=== PATIENT | female | born 1980 | race Caucasian/White ===

== ENCOUNTER 2021-04-23 00:13 | Day surgery (SDC) | payer OTHER, SELFPAY ==
[2021-04-14 15:02] VITALS: BMI 23.7
--- NOTE | 2021-04-22 16:57 | PM.IMHP ---
H&P: HPI History of Present Illness Date/Time: 04/22/21 16:57 Since approx. 2018, patient reports progressively worsening menses. Regular menses, however, reports heavier menses with passage of clots. States that menses last approx. 5-8 days. Reports heavy flow for first half of cycle. Often saturates both ultra tampon and ultra pad back up within one hour. Denies any dysmenorrhea. Patient has a history of BTL and declines any alternative medical treatment options. In general, she reports feeling well today without complaintts. Chief Complaint: Menorrhagia Review of Systems Review of Systems: All systems reviewed & are unremarkable except as noted in HPI and below Constitutional: Constitutional: Reports as per HPI, Reports no additional constitutional complaints, Denies chills, Denies fever(s), Denies headache(s) and Denies night sweats Eyes: Eyes: Reports as per HPI and Reports no additional eye complaints ENT: Reports system reviewed and no additional complaints, except as documented, Reports as per HPI, Reports Normal hearing present and Denies headache(s) Cardiovascular: Cardiovascular: Reports as per HPI, Reports no additional cardiovascular complaints, Denies chest pain and Denies dyspnea Respiratory: Respiratory: Reports as per HPI, Reports no additional respiratory complaints, Denies cough and Denies dyspnea Gastrointestinal: Gastrointestinal: Reports as per HPI, Reports no additional gastrointestinal complaints, Denies abdominal pain, Denies change in bowel habits, Denies change in stool character, Denies nausea and Denies vomiting Genitourinary: Genitourinary: Reports no additional female genitourinary complaints, Reports as per HPI, Reports abnormal vaginal bleeding, Denies genital lesions, Reports menorrhagia, Denies hot flashes, Denies dyspareunia, Denies pelvic pain, Denies sexual dysfunction, Denies urinary incontinence, Denies vaginal discharge, Denies vaginal dryness and Denies vaginal odor Musculoskeletal: Musculoskeletal: Reports no additional musculoskeletal complaints and Reports as per HPI Integumentary/Breasts: Skin/Breast: Reports system reviewed and no additional complaints, except as docu, Reports as per HPI, Denies breast pain and Denies nipple discharge Neurologic: Reports system reviewed and no additional complaints, except as documented, Reports as per HPI, Reports Normal hearing present and Denies headache(s) Psychiatric: Psychiatric: Reports no additional psychiatric complaints, Reports as per HPI, Denies anxiety and Denies depression Endocrine: Endocrine: Reports no additional endocrine complaints and Reports as per HPI Hematologic/Lymphatic: Hematologic/Lymphatic: Reports no additional hematologic/lymphatic complaints and Reports as per HPI Allergic/Immunologic: Allergic/Immunologic: Reports no additional allergic/immunologic complaints and Reports as per HPI PMFSH Past Medical History Medical History History of miscarriage History of vaginal delivery Surgical History Surgical History H/O tubal ligation 2018 History of appendectomy 1990 Family History Family History Grandparent Acute myocardial infarction Other Breast cancer Father Heart disease Social History Social History Smoking packs per day: 1 Smoking cigarettes per day: 20.0 Years smoked: 17 Smoking pack-years: 17.00 Smoking status: Current every day smoker Tobacco type: e-cigarettes/vaping Second hand tobacco smoke exposure: No Smoking end date: 07/03/10 Additional smoking assessment comments: CURRENTLY VAPES Alcohol intake: current Alcohol use details: 3/MONTH Substance use: never Substance use type: does not use Spiritual care concerns: No Meds Home Medications and Allergies Home Med
[2021-04-23 06:45] VITALS: BP 113/81; PULSE 75; RESP 14; TEMP 36.3; O2SAT 98
[2021-04-23 07:17] VITALS: BMI 23.7
--- NOTE | 2021-04-23 07:18 | P.PNAN_ITS ---
Anes - Initial Pre Proc Eval Procedure: Operation Date: 04/23/21 08:30 Proposed Procedures p Hysteroscopy Dilation and Curettage, with Endometrial Ablation Possible Myosure - Елена Ryan MD Date/Time: 04/23/21 07:18 Surgeon: Елена Ryan MD Pre Op Diagnosis: MENORRHAGIA Patient Data Age: 40 Gender: F Height: 1.68 m Weight: 66.6 kg Last Vital Signs Temp 36.3 C L 04/23/21 06:45 Pulse 75 04/23/21 06:45 Resp 14 04/23/21 06:45 BP 113/81 04/23/21 06:45 Pulse Ox 98 04/23/21 06:45 Allergies Allergy/AdvReac Type Severity Reaction Status Date / Time No Known Allergies Allergy Verified 04/23/21 07:19 Home Medications Medication Instructions Recorded Confirmed Type lactobacillus combination no.8 3 3,000 mmu cells PO DAILY 07/24/20 04/14/21 History billion cell capsule ascorbic acid (vitamin C) 500 mg 500 mg PO DAILY 03/19/21 04/14/21 History capsule ferrous sulfate 325 mg (65 mg 325 mg PO WEEKLY tablet 03/19/21 04/14/21 History iron) tablet Patient hx anesthesia problems: none Family hx anesthesia problems: none Results Review: All pre-operative results and documents have been reviewed as part of the pre-operative evaluation. [facility] Past Medical History Medical History History of miscarriage History of vaginal delivery Surgical History Surgical History H/O tubal ligation 2018 History of appendectomy 1990 Family History Family History Grandparent Acute myocardial infarction Other Breast cancer Father Heart disease Social History Social History Smoking packs per day: 1 Smoking cigarettes per day: 20.0 Years smoked: 17 Smoking pack-years: 17.00 Smoking status: Current every day smoker Tobacco type: e-cigarettes/vaping Second hand tobacco smoke exposure: No Smoking end date: 07/03/10 Additional smoking assessment comments: CURRENTLY VAPES Alcohol intake: current Alcohol use details: 3/MONTH Substance use: never Substance use type: does not use Living arrangements: with family Spiritual care concerns: No Anes - Eval Final PreProcedure Day of Procedure 04/23/21 07:18 Patient weight: normal Heart: regular rate and rhythm Lungs: clear to auscultation Airway: Mallampati scale Neurological: alert and oriented Last oral intake: >/= 8 hours ASA classification: II Emergent: no Anesthetic plan: proceed Anesthesia type and monitoring: general GIVS and standard monitoring Results Review: All pre-operative results and documents have been reviewed as part of the pre-operative evaluation. Informed Consent: The patient's anesthetic plan and its attendant risks and benefits were discussed with the patient/family/POA. Questions were solicited and answers provided to the satisfaction of the patient/family/POA.
--- NOTE | 2021-04-23 07:20 | WPDHPUPDATE1 ---
History and Physical Update Update Date/Time: 04/23/21 07:20 History and Physical has been reviewed, including an updated exam of the patient. There are NO changes in the patient's condition. Risks, benefits, and alternatives have been discussed and questions answered. Patient agrees to proceed with procedure.
[2021-04-23] MEDS: ACETAMINOPHEN 500 MG TABLET 1000 MG PO (07:22)
--- NOTE | 2021-04-23 07:25 | P.OP_ITS ---
Procedure Note - Detailed Date of Procedure 04/23/21 Pre-op Diagnosis MENORRHAGIA Post-op Diagnosis same Procedure Performed Hysteroscopy, dilation and curettage, endometrial ablation with Tresa Surgeon Елена Ryan MD Anesthesia MAC Findings A small-moderate sized endometrial polyp along posterior fundal region of endometrial cavity, additional sessile polyps along posterior surface of endometrial cavity, bilateral tubal ostia visualized Description of Procedure The patient was taken to the operating room where she self-transferred to the operating room table. She was placed in dorsal supine position. Anesthesia was administered and found to be adequate. The patient was repositioned in dorsal lithotomy position with the use of Pablo stirrups. She was prepped and draped in usual sterile fashion. A red rubber catheter was used to drain the bladder of 150 cc of clear urine. A bivalve speculum was inserted into the vagina. The cervix was well visualized. The anterior lip of the cervix was grasped with a single-tooth tenaculum. A paracervical block was performed with 1% plain lidocaine. 5 cc of lidocaine was administered on either side for a total of 10 cc. The cervix was serially dilated to accommodate a hysteroscope. The hysteroscope was introduced into the endometrial cavity. A general survey was performed. A small to moderate size endometrial polyp was visualized along posterior fundus. Several additional sessile appearing polyps were visualized along the entire posterior surface of the endometrial cavity. Bilateral tubal ostia were visualized. A few pictures were taken. The hysteroscope was removed. A medium-size rigid curette was used to perform a curettage. All quadrants of the endometrial cavity were explored. A moderate amount of tissue was obtained and prepared to be sent to pathology for analysis. The hysteroscope was r eintroduced and previously identified polyps were no longer seen. A few additional pictures were taken. The hysteroscope was removed. The Tresa endometrial ablation device was then opened on the sterile field. The appropriate settings were input on the hand-held device and the array was introduced into the endometrial cavity and deployed. The cervical balloon was insufflated. An integrity check was completed and passed by the Tresa console. After the integrity check was passed successfully, the ablation procedure started automatically and ran for the preset time of 120 seconds. After completion of the ablation procedure, the array was collapsed and the cervical balloon was desufflated. The device was removed. The tenaculum was removed from the anterior lip of the cervix. A minimal amount of oozing was noted from just inside of the cervical canal. A small amount of Monsel's was applied. Excellent hemostasis noted. The remainder of the vagina was cleansed and dried and the speculum was removed. The patient was cleansed and dried and taken out of the dorsal lithotomy position. She was awakened from anesthesia without difficulty and transferred to the recovery room in stable condition. The patient tolerated the procedure well. All sponge, lap, and instrument counts were correct at the end of the procedure. Estimated Blood Loss 5 IV Fluids 800 Urine Output 150 Drains No Packing No Pathology yes (endometrial curettings) Complications No immediate complications Condition stable Disposition PACU
[2021-04-23] MEDS: LACTATED RINGERS 1,000 ML 30 ML IV CONT (07:55)
[2021-04-23 08:03] LABS: Hematocrit 41.1 % (37.0-47.0); Hemoglobin 13.8 g/dL (12.0-15.0)
[2021-04-23] MEDS: LIDOCAINE HCL 1% PF 30 ML VIAL 10 ML INFILTRATE (08:43)
[2021-04-23] MEDS: KETOROLAC 30 MG/ML VIAL (*BKC) IV PUSH (09:01)
[2021-04-23 09:02] VITALS: BP 116/78; PULSE 70; RESP 16; O2SAT 96
[2021-04-23 09:30] VITALS: BP 117/79; PULSE 67; RESP 16; O2SAT 98
[2021-04-23 10:00] VITALS: BP 123/79; PULSE 52; RESP 16; O2SAT 99
[2021-04-23 10:30] VITALS: BP 142/84; PULSE 45; RESP 16
== END 2021-04-23 10:51 | disposition home or self-care (01) ==
PROVIDERS: Anesthesiology; PCP Family Medicine; Visit Provider Student in an Organized Health Care Education/Training Program
PROC: 0U5B8ZZ Destruction of Endometrium, Via Natural or Artificial Opening Endoscopic (ICD-10-PCS; CPT 58563; principal; 2021-04-23 08:30)
DX: N92.0 Excessive and frequent menstruation with regular cycle (principal); N84.0 Polyp of corpus uteri; F17.290 Nicotine dependence, other tobacco product, uncomplicated
CPT/HCPCS: 58563; 36415; 85014; 85018; 88305; A9270; J1885; J2250; J2270; J2405; J2704; J7030; J7120

== ENCOUNTER 2021-05-12 09:56 | Outpatient (CLI) | payer OTHER, SELFPAY ==
--- NOTE | ~2021-05-12 | MM_ITS ---
EXAMINATION: MM screening diane BI w mavis HISTORY: Screening mammogram TECHNIQUE: Craniocaudal and mediolateral oblique 3-D tomosynthesis images were obtained and synthetic 2-D images were generated. Bilateral rotated lateral craniocaudal views. CAD analysis was submitted and interpreted. COMPARISON: No prior mammogram is available for comparison at this institution. BREAST PARENCHYMAL COMPOSITION: The breasts are extremely dense, which lowers the sensitivity of mamm ography. FINDINGS: Occasional bilateral punctate microcalcifications. There is no evidence of suspicious mass, calcification, or architectural distortion to suggest malignancy in either breast. There has been no suspicious interval change. IMPRESSION: 1. No mammographic evidence of malignancy. 2. Recommend routine screening mammography in one year. BI-RADS Category 2: Benign finding(s). Reviewed, dictated and finalized at location A. TER CONSTRUCTION
== END 2021-05-12 09:57 | disposition home or self-care (01) ==
LOC: ANHIMG 09:57
PROVIDERS: PCP Family Medicine; Visit Provider Student in an Organized Health Care Education/Training Program
DX: Z12.31 Encounter for screening mammogram for malignant neoplasm of breast (principal)
CPT/HCPCS: 77063; 77067

== ENCOUNTER 2022-05-13 10:06 | Outpatient (CLI) | payer OTHER, SELFPAY ==
--- NOTE | ~2022-05-13 | MM_ITS ---
EXAMINATION: MM screening diane BI w mavis HISTORY: Screening mammogram TECHNIQUE: Craniocaudal and mediolateral oblique 3-D tomosynthesis images were obtained and synthetic 2-D images were generated. CAD analysis was submitted and interpreted. COMPARISON: 05/12/2021 bilateral screening mammogram BREAST PARENCHYMAL COMPOSITION: The breasts are extremely dense, which lowers the sensitivity of mamm ography. FINDINGS: There is no evidence of suspicious mass, calcification, or architectural distortion to sugg est malignancy in either breast. There has been no suspicious interval change. IMPRESSION: 1. No mammographic evidence of malignancy. 2. Recommend routine screening mammography in one year. BI-RADS Category 1: Negative Reviewed, dictated and finalized at location A. ORA PRODUCT CONSULTANT
== END 2022-05-13 10:07 | disposition home or self-care (01) ==
LOC: ANHIMG 10:09
PROVIDERS: PCP Family Medicine; Visit Provider Student in an Organized Health Care Education/Training Program
DX: Z12.31 Encounter for screening mammogram for malignant neoplasm of breast (principal)
CPT/HCPCS: 77063; 77067

== ENCOUNTER 2023-06-15 14:13 | Outpatient (CLI) | payer OTHER, SELFPAY ==
--- NOTE | ~2023-06-15 | MM_ITS ---
EXAMINATION: MM screening diane BI w mavis HISTORY: Screening TECHNIQUE: Craniocaudal and mediolateral oblique 3-D tomosynthesis images were obtained and synthetic 2-D images were generated. CAD analysis was submitted and interpreted. COMPARISON: Comparison to multiple prior studies sequentially, with oldest reviewed study dated 05/03. BREAST PARENCHYMAL COMPOSITION: The breasts are extremely dense, which lowers the sensitivity of mamm ography FINDINGS: There is no evidence of suspicious mass, calcification, or architectural distortion to sugg est malignancy in either breast. There has been no suspicious interval change. IMPRESSION: 1. No mammographic evidence of malignancy. 2. Recommend routine screening mammography in one year. BI-RADS Category 1: Negative Reviewed, dictated and finalized at location A. T INSPECTOR
== END 2023-06-15 14:14 | disposition home or self-care (01) ==
PROVIDERS: PCP Family Medicine; Visit Provider Registered Nurse
DX: Z12.31 Encounter for screening mammogram for malignant neoplasm of breast (principal)
CPT/HCPCS: 77063; 77067

== ENCOUNTER 2024-06-05 14:19 | Outpatient (CLI) | payer OTHER, SELFPAY ==
--- NOTE | ~2024-06-05 | US_ITS ---
EXAMINATION: US pelvic complete w TV DATE: 06/05/2024 14:50 INDICATION: Excessive and frequent menstruation. TECHNIQUE: Multiple transabdominal and transvaginal sonographic images of the pelvis were obtained. COMPARISON: None. FINDINGS: TRANSABDOMINAL ULTRASOUND: The uterus measures 8.4 x 5.1 x 5.8 cm. There is no free fluid in the pelvis. TRANSVAGINAL ULTRASOUND: The endometrial complex measures 4 mm in thickness. There is a 4.4 cm subserosal fibroid. There are n abothian cysts in the cervix. The right ovary measures 2.7 x 2.9 x 3.2 cm. The left ovary measures 6. 2 x 4.5 x 6.3 cm. There is a 5.9 cm hypoechoic mass in left ovary. There is normal vascular flow in t he ovaries. IMPRESSION: 1. 5.9 cm hypoechoic mass in left ovary, most likely a hemorrhagic cyst. Pelvis ultrasound is recomme nded in 6-12 weeks. 2. Uterine fibroid. Reviewed, dictated and finalized at location A. STUDY OBSERVER IMPRESSION: 1. 5.9 cm hypoechoic mass in left ovary, most likely a hemorrhagic cyst. Pelvis ultrasound is recommended in 6-12 weeks. 2. Uterine fibroid.
== END 2024-06-05 14:20 | disposition home or self-care (01) ==
PROVIDERS: PCP Family Medicine; Visit Provider Nurse Practitioner Family
DX: N83.9 Noninflammatory disorder of ovary, fallopian tube and broad ligament, unspecified (principal); N92.0 Excessive and frequent menstruation with regular cycle
CPT/HCPCS: 76830; 76856

== ENCOUNTER 2024-07-15 15:53 | Outpatient (CLI) | payer OTHER, SELFPAY ==
[2024-07-16 12:03] LABS: CA-125 36 U/mL (<35)
== END 2024-07-15 15:54 | disposition home or self-care (01) ==
LOC: ANHLAB 15:53
PROVIDERS: PCP Family Medicine; Visit Provider Obstetrics & Gynecology
DX: N83.202 Unspecified ovarian cyst, left side (principal)
CPT/HCPCS: 36415; 86304

== ENCOUNTER 2024-10-10 13:14 | Outpatient (CLI) | payer OTHER, SELFPAY ==
--- NOTE | 2024-10-10 13:35 | ECG_ITS ---
Test Date: 2024-10-10 13:44:55 Measurements Intervals [place] Rate: 64 P: 73 NC: 135 QRS: 69 QRSD: 88 T: 59 QT: 389 QTc: 404 Interpretive Statements SINUS RHYTHM WITH SINUS ARRHYTHMIA BASELINE ARTIFACT- I, II, III, AVR, AVL,A VF NORMAL ECG No previous ECG available for comparison Electronically Signed On 10-10-2024 13:54:34 CDT by Pasquale Segundo D.O.
--- OUTSIDE RECORDS SUMMARY | 2024-10-10 13:48 | XMS_ITS | Clinical Summary ---
Author Organization [facility] at the [facility] Office Center Address [address] [place] [address] Care Team Providers Care Grinding Machine Tender Name Role Phone Sonal Galvan MD Primary Care Provider [phone] Allergies No known active allergies Medications ferrous sulfate 325 mg (65 mg of elemental iron) tabletIndications:Iron Deficiency Anemia Take 1 tablet (325 mg total) by mouth 2 (two) times a day 60 tablet 3 10/08/19 20 Active simvastatin (ZOCOR) 20 mg tabletIndications:Pure hypercholesterolemia Take 1 tablet (20 mg total) by mouth nightly 90 tablet 4 06/05/20 23 Active ascorbic acid 500 mg tablet,chewable Super C Vit c, d3, zinc Active riboflavin (Vitamin B-2) 100 mg tabletIndications:Ribofl mya Deficiency 1 tablet (100 mg total) Active magnesium glycinate 100 mg tablet Take by mouth Active mesalamine (PENTASA) 250 mg CR capsuleIndications:Ulcer ative Colitis Take 1 capsule (250 mg total) by mouth 4 (four) times a day Active SUMAtriptan (IMITREX) 50 mg tabletIndications:Migrai ne Take 1 tablet (50 mg total) by mouth once as needed for migraine May repeat after 2 hours. 9 tablet 02/21/20 24 Active rimegepant (Nurtec ODT) tablet,disintegratingInd ications:Intractable migraine without aura and with status migrainosus Take 1 tablet (75 mg total) by mouth daily as needed (migraine) 9 tablet 5 07/24/19 25 Active Active Problems Problem Noted Date Diagnosed Date Intractable migraine without aura and with status migrainosus 02/21/2024 Assessment & Plan (05/24/2024 8:48 AM CRUST SORTER): Chronic The imitrex makes her too drowsy and unable to function Ubrelvy did not help Nurtec worked well Assessment & Plan (02/26/2024 7:24 AM CDT): Chronic Try imitrex Order CT head Functional diarrhea 06/05/2023 Assessment & Plan (06/29/2023 3:56 PM CRUST SORTER): New Refer to GI Periumbilical abdominal cramping 06/05/2023 Assessment & Plan (06/29/2023 3:57 PM CRUST SORTER): New Refer to GI Family history of heart disease 03/10/2022 Well adult exam 11/02/2020 Assessment & Plan (10/25/2021 9:44 AM CDT): Order screening labs Follow low cholesterol diet Watch iron levels Cont iron supplement and omega-3 Iron deficiency anemia 10/24/2019 Assessment & Plan (02/26/2024 7:24 AM CDT): Chronic Stable Cont ferrous sulfate Assessment & Plan (10/24/2019 10:10 AM CDT): Uncontrolled Cont ferrous sulfate BID Recheck cbc, iron in 3 months Tobacco abuse 10/24/2019 Assessment & Plan (10/24/2019 10:09 AM CDT): Patient advised on smoking cessation. Counseled on ways to cut back and advised to call office if would like advice on methods and medications used to help quit smoking. This is a chronic problem and would always recommend reducing amount of smoking in hopes of quitting completely. Spent 3-10 minutes Pure hypercholesterolemia 10/08/2019 Assessment & Plan (02/26/2024 7:24 AM CDT): Chronic Stable Cont zocor Goal: TC<200, LDL<100, TG<150 Assessment & Plan (06/29/2023 3:56 PM CRUST SORTER): Chronic Uncontrolled Increase zocor to 20mg every day Goal: TC<200, LDL<100, TG<150 Assessment & Plan (03/11/2022 6:51 AM CDT): uncontrolled Start zocor Goal: TC<200, LDL<100, TG<150 Assessment & Plan (10/24/2019 10:09 AM CDT): Improving Cont omega-3 Recheck in 1 year Assessment & Plan (10/08/2019 2:26 PM CDT): New Start OTC fish oil Foot callus 10/04/2019 Assessment & Plan (10/04/2019 12:22 PM CDT): New Possibly secondary cellulitis Order augmentin Refer to podiatry Adult general medical exam 10/04/2019 Encounter for screening mamm ogram for malignant neoplasm of breast 10/04/2019 Encounters Date Type Department Care Team Description 08/21/2024 Telephone [facility] Minimally Invasive Surgery [address] [facility] Outpatient [facility] 7th Floor [address] [place] [address] Cha Rico, DIANE New Referral 08/19/2024 Telephone [facility] Minimally Invasive Surgery [address] [facility] 7th Floor [address] [place] [address] Cha Rico, RMA New Referral from Last 3 Months Immunizations Immunization Administration Dates Next Due Influenza, Quadrivalent, Spl it, Preservative Free, Intramuscular 04/06/2020 Influenza, Unspecified 04/02/2024,2022,04/02/2022,04/02 CleanSlate (J&J) SARS-CoV-2 Vaccination 09/13/2020 Pfizer SARS-CoV-2 Monovalent Vaccination (5-11 Yrs) 04/02/2021 Surgical History Surgery Date Site/Laterality Comments APPENDECTOMY TUBAL LIGATION ENDOMETRIAL ABLATION 03/03/2021 - 04/01/2021 Medical History Medical History Date Comments Hyperlipidemia Anemia Family History Medical History Relation Name Comments Heart disease Father Hyperlipidemia Father Stent Father No Known Problems Mother Breast cancer Neg Hx Ovarian cancer Neg Hx Relation Name Status Comments Father Alive Mother Alive Social History Tobacco Use Types Packs/Day Years Used Date Smoking Tobacco: Every Day Vaping Started: 2010 Smokeless Tobacco: Never Alcohol Use Standard Drinks/Week Comments Yes 0 (1 standard drink = 0.6 oz pur e alcohol) occassionally AUDIT-C Answer Date Recorded Q1: How often do you have a drink containing alc ohol? Monthly or less 02/21/2024 Q2: How many drinks containi ng alcohol do you have on a typical day when you are drinking? 1 or 2 02/21/2024 Frequency of Binge Drinking Not on file 02/01 PHQ-2 Answer Date Recorded PHQ-2 Total Score (If total score is 3 or more points, staff should administer the PHQ-9) 1 02/21/2024 Comments No Sex and Gender Information Value Date Recorded Sex Assigned at Not on file Legal Sex Female 7:23 PM CRUST SORTER Gender Identity Not on file Sexual Orientation Not on file Obstetrics History Para Term AB IAB SAB Ectopic Multiple Livin g Live Births 4 1 1 Date Outcome GA Total Labor Labor/2nd/3rd Weight Sex Type Anes PTL Darby A1 A5 Name Clin Term Last Filed Vital Signs Vital Sign Reading Time Taken Comments Blood Pressure 110/70 05/24/2024 8:42 AM CRUST SORTER Pulse 65 02/21/2024 2:58 PM CDT Temperature 36.7 C (98.1 F) 02/21/2024 2:58 PM CDT Respiratory Rate 18 02/21/2024 2:58 PM CDT Oxygen Saturation 98% 02/21/2024 2:58 PM CDT Inhaled Oxygen Concentration - - Weight 65.8 kg (145 lb) 05/24/2024 8:42 AM CRUST SORTER Height 170.2 cm (5' 7.01 ) 05/24/2024 8:42 AM CS T Body Mass Index 22.7 05/24/2024 8:42 AM CRUST SORTER Plan of Treatment Health Maintenance Due Date Last Done Comments Cervical Cancer Screening 1979 Colon Cancer Screening-Colonoscopy 1979 Hepatitis C Screening 1979 Hepatitis B Screening 1997 Regular Well Visit/Exam 18-64 10/25/2022 10/25/2021, 10/22/2020 Covid-19 Vaccine (2 - season) 2024 04/02/2021, 09/13/2020 DTaP/Tdap/Td Vaccine (1 - Tdap) 12/03/2024 Postponed from 1990 (Patient declined, but will receive in the future) Depression Screening 02/20/2025 02/21/2024, 12/01/2022, 03/10/2022, Additional history exists Breast Cancer Screening-Mammogram 06/17/2025 06/17/2024, 06/15/2023, 05/12/2021, Additional history exists Pneumococcal vaccine <65 (1 of 2 - PCV) 11/23/2027 Postponed from 1998 (Provider's clinical decision) Influenza Vaccine Completed 04/02/2024, , 04/02/2022, Additional history exists HPV Vaccines Aged Out No longer eligi ble based on patient's age to complete this topic Procedures Procedure Name Priority Date/Time Associated Diagnosis Comments SCREENING MAMMOGRAM BILATERAL W CHEVY Schedule Routine, Read Routine (OP Routine) 06/17/2024 9:06 AM CRUST SORTER Screening mammogram, encounter for from Last 3 Months or Most Recently Relevant to Health Maintenance Results * (ABNORMAL) Screening Mammogram Bilateral W Chevy (06/17/2024 9:06 AM CRUST SORTER) Anatomical Region Laterality Modality Breast Bilateral Mammography 06/21/2024 9:41 AM CRUST SORTER Addenda Addendum by Delores Woods MD on 06/21/2024 6:27 PM CRUST SORTER In the body of the report, the right side is erroneously stated to require biopsy. This should say left. Recommendations remain unchanged. T SORTER IN THE BODY OF THE REPORT, THE MASS IS DESCRIBED BEING IN THE LEFT BREAST. IT IS IN FACT IN THE RIGHT BREAST. Electronically signed by: Delores Woods M.D. Impressions 06/19/2024 11:12 AM CRUST SORTER Mass on the right for which ULTRASOUND is recommended. BI-RADS ATLAS category (right): 0 - Incomplete: Needs Additional Imaging Evaluation There is no mammographic evidence of malignancy. A 1 year screening mammogram is recommended. The patient has been or will be contacted. We recommend annual screening mammography for women at average risk of breast cancer beginning at age 40, based on guidelines of the [employer] (ACR Practice Parameter for the Performance of Screening and Diagnostic Mammography) and [employer]. For women with and elevated risk of breast cancer, please refer to the ACR Practice Parameter for specific screening recommendations. The patient will be entered into a reminder system with a target due date of 1 year for her next screening exam. Narrative 06/19/2024 11:12 AM CRUST SORTER Screening Mammogram Bilateral W Chevy: 06/17/24 The study was acquired using full field digital technology and interpreted from soft copy. 2D digital mammographic views, as well as 3D digital tomosynthesis were performed in the CC and MLO projections. This study was resulted using Computer-Aided Detection (CAD). CLINICAL: Screening mammogram, encounter for. No relevant medical history has been documented for this patient. History of breast cancer in Neg Hx. No comparisons were made when reading this study. BREAST TISSUE: The breasts are extremely dense, which lowers the sensitivity of mammography. FINDINGS: Now seen is a circumscribed mass in the anteromedial left breast. There may be some dependently layering milk of calcium. No suspicious calcifications, or other suspicious findings are seen within either breast. Procedure Note Delores Woods MD - 06/19/2024 Screening Mammogram Bilateral W Chevy: 06/17/24 The study was acquired using full field digital technology and interpretedfrom soft copy. 2D digital mammographic views, as well as 3D digitaltomosynthesis were performed in the CC and MLO projections. This study wasresulted using Computer- Aided Detection (CAD). CLINICAL: Screening mammogram, encounter for. No relevant medicalhistory has been documented for this patient. History of breast cancer inNeg Hx. No comparisons were made when reading this study. BREAST TISSUE: The breasts are extremely dense, which lowers the sensitivity ofmammography. FINDINGS: Now seen is a circumscribed mass in the anteromedial leftbreast. There may be some dependently layering milk of calcium. Nosuspicious calcifications, or other suspicious findings are seen withineither breast. IMPRESSION: Mass on the right for which ULTRASOUND is recommended. BI-RADS ATLAS category (right): 0 - Incomplete: Needs Additional ImagingEvaluation There is no mammographic evidence of malignancy. A 1 year screeningmammogram is recommended. The patient has been or will be contacted. We recommend annual screening mammography for women at average risk ofbreast cancer beginning at age 40, based on guidelines of the [employer] (ACR Practice Parameter for the Performance ofScreening and Diagnostic Mammography) and [employer]. For women with and elevated risk ofbreast cancer, please refer to the ACR Practice Parameter for specificscreening recommendations. The patient will be entered into a reminder system with a target due dateof 1 year for her next screening exam. Jeanna Bryant NP IMG MAMMO PROCEDURES Edited Res ult - Final from Last 3 Months or Most Recently Relevant to Health Maintenance Insurance [employer] OPEN ACCESS [place] [id number] H & [facility] SUPPLEMENT CIG[employer] Care Teams Grinding Machine Tender Relationship Specialty Start Date End Date Sonal Galvan MD PCP - General Family Medicine 09/25/19
--- OUTSIDE RECORDS SUMMARY | 2024-10-10 13:48 | XMS_ITS | Referral Summary ---
Author Organization [facility] at the [facility] Office Center Address [address] [place] [address] Care Team Providers Care Braiding Operator Name Role Phone Sonal Galvan MD Primary Care Provider [phone] Encounters Date Type Department Care Team Description 08/21/2024 Telephone [facility] Minimally Invasive Surgery [address] [facility] 7th Floor [address] [place] [address] Cha Rico RMA New Referral 08/19/2024 Telephone [facility] Minimally Invasive Surgery [address] [facility] Outpatient [facility] 7th Floor [address] [place] [address] Cha Rico, DIANE New Referral from Last 3 Months Allergies No known active allergies Medications ferrous [...] 02/21/2024 Assessment & Plan (05/24/2024 8:48 AM AUDIO VISUAL ARTS DIRECTOR): Chronic The imitrex makes her too drowsy and unable to function Ubrelvy did not help Nurtec worked well Assessment & Plan (02/26/2024 7:24 AM CDT): Chronic Try imitrex Order CT head Functional diarrhea 06/05/2023 Assessment & Plan (06/29/2023 3:56 PM AUDIO VISUAL ARTS DIRECTOR): New Refer to GI Periumbilical abdominal cramping 06/05/2023 Assessment & Plan (06/29/2023 3:57 PM AUDIO VISUAL ARTS DIRECTOR): New Refer to GI Family history of [...] TG<150 Assessment & Plan (06/29/2023 3:56 PM AUDIO VISUAL ARTS DIRECTOR): Chronic Uncontrolled Increase zocor to 20mg every [...] ogram for malignant neoplasm of breast 10/04/2019 Immunizations Immunization Administration Dates Next Due Influenza, Quadrivalent, Spl it, Preservative Free, Intramuscular 04/06/2020 Influenza, Unspecified 04/02/2024,2022,04/02/2022,04/02 [employer] (J&J) SARS-CoV-2 Vaccination 09/13/2020 Pfizer SARS-CoV-2 Monovalent Vaccination (5-11 Yrs) 04/02/2021 Social History Tobacco Use Types Packs/Day Years [...] on file Legal Sex Female 7:23 PM AUDIO VISUAL ARTS DIRECTOR Gender Identity Not on file Sexual Orientation Not on file Last Filed Vital Signs Vital Sign Reading Time Taken Comments Blood Pressure 110/70 05/24/2024 8:42 AM AUDIO VISUAL ARTS DIRECTOR Pulse 65 02/21/2024 2:58 PM CDT Temperature 36.7 C (98.1 F) 02/21/2024 2:58 PM CDT Respiratory Rate 18 02/21/2024 2:58 PM CDT Oxygen Saturation 98% 02/21/2024 2:58 PM CDT Inhaled Oxygen Concentration - - Weight 65.8 kg (145 lb) 05/24/2024 8:42 AM AUDIO VISUAL ARTS DIRECTOR Height 170.2 cm (5' 7.01 ) 05/24/2024 8:42 AM CS T Body Mass Index 22.7 05/24/2024 8:42 AM AUDIO VISUAL ARTS DIRECTOR Plan of Treatment Not on file Procedures Procedure Name Priority Date/Time Associated Diagnosis Comments SCREENING MAMMOGRAM BILATERAL W CHEVY Schedule Routine, Read Routine (OP Routine) 06/17/2024 9:06 AM AUDIO VISUAL ARTS DIRECTOR Screening mammogram, encounter for from Last 3 Months or Most Recently Relevant to Health Maintenance Results * (ABNORMAL) Screening Mammogram Bilateral W Chevy (06/17/2024 9:06 AM AUDIO VISUAL ARTS DIRECTOR) Anatomical Region Laterality Modality Breast Bilateral Mammography 06/21/2024 9:41 AM AUDIO VISUAL ARTS DIRECTOR Addenda Addendum by Delores Woods MD on 06/21/2024 6:27 PM AUDIO VISUAL ARTS DIRECTOR In the body of the report, the right side is erroneously stated to require biopsy. This should say left. Recommendations remain unchanged. O VISUAL ARTS DIRECTOR IN THE BODY OF THE REPORT, THE MASS IS DESCRIBED BEING IN THE LEFT BREAST. IT IS IN FACT IN THE RIGHT BREAST. Electronically signed by: Delores Woods M.D. Impressions 06/19/2024 11:12 AM AUDIO VISUAL ARTS DIRECTOR Mass on the right for which ULTRASOUND [...] age 40, based on guidelines of the [employer] (ACR Practice Parameter for the Performance of Screening and Diagnostic Mammography) and [employer]. For women with and elevated risk of breast cancer, please refer to the ACR Practice Parameter for specific screening recommendations. The patient will be entered into a reminder system with a target due date of 1 year for her next screening exam. Narrative 06/19/2024 11:12 AM AUDIO VISUAL ARTS DIRECTOR Screening Mammogram Bilateral W Chevy: 06/17/24 The [...] the Performance ofScreening and Diagnostic Mammography) and [employer]nec[employer]. For women with [...] Most Recently Relevant to Health Maintenance Insurance [employer] OPEN ACCESS [place] [id number] [address] & [facility] [address] Care Teams Braiding Operator Relationship Specialty Start Date End Date Sonal Galvan MD PCP - General Family Medicine 09/25/19
--- OUTSIDE RECORDS SUMMARY | 2024-10-10 13:48 | XMS_ITS | Clinical Summary ---
Author Organization [facility] Address [address] [place] [address] Care Team Providers Care Casting Associate Name Role Phone None, Provider MD Primary Care Provider Unavaila ble Social History Tobacco Use Types Packs/Day Years Used Date Smoking Tobacco: Never Assessed Comments Unknown Sex and Gender Information Value Date Recorded Sex Assigned at Not on file Legal Sex Female 4:17 PM CDT Gender Identity Not on file Sexual Orientation Not on file Plan of Treatment Health Maintenance Due Date Last Done Comments Cervical Cancer Screening Pa p Smear (Age 30 to 64) Every 3 Years 1979 Colorectal Cancer Screening Colonoscopy (10 Years) 1979 Annual Physical 1982 Hepatitis C 1997 DTaP, Tdap and Td Vaccines ( 1 - Tdap) 1998 Hepatitis B Vaccines (1 of 3 - 19+ 3-dose series) 1998 Cervical Cancer Screening Pa p with HPV Testing (Age 30 to 64) Every 5 Years 2009 Cervical Cancer Screening wi th HPV 2009 COVID-19 Vaccine (2023-2 5 season) 2024 04/02/2021, 09/13/2020 Mammogram Screening 06/15/2025 06/15/2023, 04/15/2020 HPV Vaccines Aged Out No longer eligi ble based on patient's age to complete this topic Meningococcal B Vaccine Aged Out No l onger eligible based on patient's age to complete this topic Meningococcal Vaccine Aged Out No eunice fox eligible based on patient's age to complete this topic Pneumococcal Vaccine: Pediatrics (0 to 5 Years) and At-Risk Patients (6 to 64 Years) Aged Out No longer eligible b ased on patient's age to complete this topic RSV Immunizations Under 20 Months Aged Out No longer eligible b ased on patient's age to complete this topic Care Teams Casting Associate Relationship Specialty Start Date End Date None, Provider, PCP - General 04/09/21
== END 2024-10-10 13:15 | disposition home or self-care (01) ==
LOC: ANHSURGERY 13:20
PROVIDERS: PCP Family Medicine; Visit Provider Obstetrics & Gynecology
DX: N92.0 Excessive and frequent menstruation with regular cycle (principal); E78.00 Pure hypercholesterolemia, unspecified
CPT/HCPCS: 36415; 86850; 86900; 86901; 93005

== ENCOUNTER 2024-10-18 00:04 | Day surgery (SDC) | payer OTHER, SELFPAY ==
[2024-10-08 16:25] VITALS: BMI 24.2
--- NOTE | 2024-10-08 16:29 | SUR.PREOP ---
Report to the Outpatient Waiting Room, entrance under the green pavilion located off [facility], at time 10/18/24 on date 0600. Planned Procedure Time: 0730.? Time changes happen often and if your time is changed the preop area will call you the afternoon before. - You and your visitor will be asked to self-screen and do not enter if you have any COVID symptoms. Please call surgeon if you need to reschedule. - A mask is optional within the hospital at this time. Patients may have clear liquids (water, carbonated beverages, clear teas, apple juice) until 3 hours prior to surgery with a maximum of 20 ounces. - No food from midnight until time of surgery and no smoking, or chewing tobacco (or any form of nicotine). No chewing gum, candy or mints. - Infants may have breast milk until 4 hours before surgery, infant formula 6 hours prior to surgery. - Children will be allowed to drink immediately following surgery.? If applicable, please bring a bottle or sippy cup to assist with drinking. Juice, water, soda, and popsicles are readily available.? For infants on formula, please bring formula the day of surgery.? Pacifiers are allowed. Take only the following medications with a SIP of water on the morning of surgery: n/a DO NOT STOP ANY OF YOUR OTHER PRESCRIPTION MEDICATIONS PRIOR TO SURGERY EXCEPT THE FOLLOWING Hold all vitamins and supplements for 3 days per anesthesiologist. Medications to discontinue per physician ___hold simvastatin morning of procedure, hold vitamins and supplements 3 days prior Date to take last dose Please no make-up, nail palauan, hairspray, perfume, deodorant, or body powder the day of surgery.? No jewelry (including any body piercings) or valuables the day of surgery, leave them at home.? Please take a shower or bath the night before, or the morning of, surgery with an antibacterial soap.? Wear comfortable, loose fitting clothing.? Children are encouraged to wear pajamas. - Jewelry must be removed prior to entering the operating room.? Rings and piercings that are not removed may be cut off. - The hospital will not accept responsibility for valuables.? - Please leave all valuables, including medications, at home the day of surgery. If you are going home after surgery, a licensed skip load driver must drive you home.? - NO public transportation without another adult if you receive anesthesia. - We recommend that an adult stay with you for 24 hours following discharge. - We also recommend that you do not drive, make important decision, drink alcoholic beverages, or take any drugs that were not prescribed by your health care provider for at least 24 hours after your discharge time. For Pediatric surgeries, we recommend two adults accompany the child home. Follow any additional instructions given to you from your surgeon. Telephone instructions given to patient and asked if any additional questions and then verbalized understanding. Patient advised to call surgeon office or pre surgery nurse liaison [phone] if any additional questions.
[2024-10-18] VITALS (11 sets, daily range): BP systolic 122–152; BP diastolic 69–85; PULSE 53–77; RESP 14–18; TEMP 36.2–36.6; O2SAT 95–100
--- OUTSIDE RECORDS SUMMARY | 2024-10-18 00:06 | XMS_ITS | Clinical Summary ---
Author Organization [facility] Address [address] [place] [address] Care Team Providers Care Pododermatologist Name Role Phone None, Provider MD Primary [...] 5 Years) and At-Risk Patients (6 to 49 Years) Aged Out No longer eligible b ased on patient's age to complete this topic RSV Immunizations Under 20 Months Aged Out No longer eligible b ased on patient's age to complete this topic Care Teams Pododermatologist Relationship Specialty Start Date End Date None, Provider, PCP - General 04/09/21
--- OUTSIDE RECORDS SUMMARY | 2024-10-18 00:06 | XMS_ITS | Referral Summary ---
Author Organization [facility] at the [facility] Office Center Address [address] [place] [address] Care Team Providers Care Infrastructure Tech Name Role Phone Sonal Galvan MD Primary Care Provider [phone] Encounters Date Type Department Care Team Description 08/21/2024 Telephone [facility] Minimally Invasive Surgery [address] [facility] Outpatient Health 7th Floor [address] [place] [address] Cha Rico RMA New Referral 08/19/2024 Telephone [facility] Minimally Invasive Surgery [address] [facility] Outpatient [facility] 7th Floor [address] [place] [address] Cha Rico, Reinier New Referral from Last 3 Months Allergies [...] 02/21/2024 Assessment & Plan (05/24/2024 8:48 AM AGILE JAVA DEVELOPER): Chronic The imitrex makes her too drowsy and unable to function Ubrelvy did not help Nurtec worked well Assessment & Plan (02/26/2024 7:24 AM CDT): Chronic Try imitrex Order CT head Functional diarrhea 06/05/2023 Assessment & Plan (06/29/2023 3:56 PM AGILE JAVA DEVELOPER): New Refer to GI Periumbilical abdominal cramping 06/05/2023 Assessment & Plan (06/29/2023 3:57 PM AGILE JAVA DEVELOPER): New Refer to GI Family history of [...] TG<150 Assessment & Plan (06/29/2023 3:56 PM AGILE JAVA DEVELOPER): Chronic Uncontrolled Increase zocor to 20mg every [...] Preservative Free, Intramuscular 04/06/2020 Influenza, Unspecified 04/02/2024,2022,04/02/2022,04/02 [employer]Bridge (J&J) SARS-CoV-2 Vaccination 09/13/2020 Pfizer SARS-CoV-2 Monovalent [...] on file Legal Sex Female 7:23 PM AGILE JAVA DEVELOPER Gender Identity Not on file Sexual Orientation Not on file Last Filed Vital Signs Vital Sign Reading Time Taken Comments Blood Pressure 110/70 05/24/2024 8:42 AM AGILE JAVA DEVELOPER Pulse 65 02/21/2024 2:58 PM CDT Temperature 36.7 C (98.1 F) 02/21/2024 2:58 PM CDT Respiratory Rate 18 02/21/2024 2:58 PM CDT Oxygen Saturation 98% 02/21/2024 2:58 PM CDT Inhaled Oxygen Concentration - - Weight 65.8 kg (145 lb) 05/24/2024 8:42 AM AGILE JAVA DEVELOPER Height 170.2 cm (5' 7.01 ) 05/24/2024 8:42 AM CS T Body Mass Index 22.7 05/24/2024 8:42 AM AGILE JAVA DEVELOPER Plan of Treatment Not on file Procedures Procedure Name Priority Date/Time Associated Diagnosis Comments SCREENING MAMMOGRAM BILATERAL W CHEVY Schedule Routine, Read Routine (OP Routine) 06/17/2024 9:06 AM AGILE JAVA DEVELOPER Screening mammogram, encounter for from Last 3 Months or Most Recently Relevant to Health Maintenance Results * (ABNORMAL) Screening Mammogram Bilateral W Chevy (06/17/2024 9:06 AM AGILE JAVA DEVELOPER) Anatomical Region Laterality Modality Breast Bilateral Mammography 06/21/2024 9:41 AM AGILE JAVA DEVELOPER Addenda Addendum by Delores Woods MD on 06/21/2024 6:27 PM AGILE JAVA DEVELOPER In the body of the report, the right side is erroneously stated to require biopsy. This should say left. Recommendations remain unchanged. E JAVA DEVELOPER IN THE BODY OF THE REPORT, THE MASS IS DESCRIBED BEING IN THE LEFT BREAST. IT IS IN FACT IN THE RIGHT BREAST. Electronically signed by: Delores Woods M.D. Impressions 06/19/2024 11:12 AM AGILE JAVA DEVELOPER Mass on the right for which ULTRASOUND [...] age 40, based on guidelines of the [employer] (ACR Practice Parameter for the Performance of Screening and Diagnostic Mammography) and [employer]. For women with and elevated risk of breast cancer, please refer to the ACR Practice Parameter for specific screening recommendations. The patient will be entered into a reminder system with a target due date of 1 year for her next screening exam. Narrative 06/19/2024 11:12 AM AGILE JAVA DEVELOPER Screening Mammogram Bilateral W Chevy: 06/17/24 The [...] the Performance ofScreening and Diagnostic Mammography) and [employer]nec[employer]. For women with [...] Most Recently Relevant to Health Maintenance Insurance [employer]NA OPEN [place]ESS [place] [id number] [address] & [facility] [place] [address] Care Teams Infrastructure Tech Relationship Specialty Start Date End Date Sonal Galvan MD PCP - General Family Medicine 09/25/19
--- OUTSIDE RECORDS SUMMARY | 2024-10-18 00:06 | XMS_ITS | Clinical Summary ---
Author Organization [facility] Office Center Address [address] [place] [address] Care Team Providers Care Patent Paralegal Name Role Phone Sonal Galvan MD Primary Care Provider [phone] Allergies No known active allergies Medications ferrous [...] 02/21/2024 Assessment & Plan (05/24/2024 8:48 AM TELEVISION STATION MANAGER): Chronic The imitrex makes her too drowsy and unable to function Ubrelvy did not help Nurtec worked well Assessment & Plan (02/26/2024 7:24 AM CDT): Chronic Try imitrex Order CT head Functional diarrhea 06/05/2023 Assessment & Plan (06/29/2023 3:56 PM TELEVISION STATION MANAGER): New Refer to GI Periumbilical abdominal cramping 06/05/2023 Assessment & Plan (06/29/2023 3:57 PM TELEVISION STATION MANAGER): New Refer to GI Family history of [...] TG<150 Assessment & Plan (06/29/2023 3:56 PM TELEVISION STATION MANAGER): Chronic Uncontrolled Increase zocor to 20mg every [...] Type Department Care Team Description 08/21/2024 Telephone [facility] Minimally Invasive Surgery [address] [facility] Out[facility] 7th Floor [address] [place] [address] Cha Rico, DIANE New Referral 08/19/2024 Telephone [facility] Minimally Invasive Surgery [address] [facility] 7th [address] [place] [address] Cha Rico, RMA New Referral from Last 3 Months Immunizations Immunization Administration Dates Next Due Influenza, Quadrivalent, Spl it, Preservative Free, Intramuscular 04/06/2020 Influenza, Unspecified 04/02/2024,2022,04/02/2022,04/02 Jocoos (J&J) SARS-CoV-2 Vaccination 09/13/2020 Pfizer SARS-CoV-2 Monovalent [...] on file Legal Sex Female 7:23 PM TELEVISION STATION MANAGER Gender Identity Not on file Sexual Orientation Not on file Obstetrics History Para Term AB IAB SAB Ectopic Multiple Livin g Live Births 4 1 1 Date Outcome GA Total Labor Labor/2nd/3rd Weight Sex Type Anes PTL Darby A1 A5 Name Clin Term Last Filed Vital Signs Vital Sign Reading Time Taken Comments Blood Pressure 110/70 05/24/2024 8:42 AM TELEVISION STATION MANAGER Pulse 65 02/21/2024 2:58 PM CDT Temperature 36.7 C (98.1 F) 02/21/2024 2:58 PM CDT Respiratory Rate 18 02/21/2024 2:58 PM CDT Oxygen Saturation 98% 02/21/2024 2:58 PM CDT Inhaled Oxygen Concentration - - Weight 65.8 kg (145 lb) 05/24/2024 8:42 AM TELEVISION STATION MANAGER Height 170.2 cm (5' 7.01 ) 05/24/2024 8:42 AM CS T Body Mass Index 22.7 05/24/2024 8:42 AM TELEVISION STATION MANAGER Plan of Treatment Health Maintenance Due Date [...] Read Routine (OP Routine) 06/17/2024 9:06 AM TELEVISION STATION MANAGER Screening mammogram, encounter for from Last 3 Months or Most Recently Relevant to Health Maintenance Results * (ABNORMAL) Screening Mammogram Bilateral W Chevy (06/17/2024 9:06 AM TELEVISION STATION MANAGER) Anatomical Region Laterality Modality Breast Bilateral Mammography 06/21/2024 9:41 AM TELEVISION STATION MANAGER Addenda Addendum by Delores Woods MD on 06/21/2024 6:27 PM TELEVISION STATION MANAGER In the body of the report, the right side is erroneously stated to require biopsy. This should say left. Recommendations remain unchanged. VISION STATION MANAGER IN THE BODY OF THE REPORT, THE MASS IS DESCRIBED BEING IN THE LEFT BREAST. IT IS IN FACT IN THE RIGHT BREAST. Electronically signed by: Delores Woods M.D. Impressions 06/19/2024 11:12 AM TELEVISION STATION MANAGER Mass on the right for which ULTRASOUND [...] age 39, based on guidelines of the [place] [employer] (ACR Practice Parameter for the Performance of Screening and Diagnostic Mammography) and [place] [employer]. For women with and elevated risk of breast cancer, please refer to the ACR Practice Parameter for specific screening recommendations. The patient will be entered into a reminder system with a target due date of 1 year for her next screening exam. Narrative 06/19/2024 11:12 AM TELEVISION STATION MANAGER Screening Mammogram Bilateral W Chevy: 06/17/24 The [...] the Performance ofScreening and Diagnostic Mammography) and [place] [employer]. For women with [...] to Health Maintenance Insurance [employer] OPEN ACCESS [place] [id number] H & [facility] [employer] Care Teams Patent Paralegal Relationship Specialty Start Date End Date Sonal Galvan MD PCP - General Family Medicine 09/25/19
[2024-10-18] MEDS: ACETAMINOPHEN 500 MG TABLET 1000 MG PO ×3 (06:22→19:30)
[2024-10-18] MEDS: LACTATED RINGERS 1,000 ML 30 ML IV CONT (06:25)
[2024-10-18] MEDS: KETOROLAC 15 MG/ML VIAL (*BKC) IV PUSH (06:30)
--- NOTE | 2024-10-18 06:55 | WPDHPUPDATE1 ---
History and Physical Update Update Date/Time: 10/18/24 06:55 History and Physical has been reviewed, including an updated exam of the patient. There are NO changes in the patient's condition. Risks, benefits, and alternatives have been discussed and questions answered. Patient agrees to proceed with procedure.
--- NOTE | 2024-10-18 06:59 | WPDANESEPPF ---
Anes - Initial Pre Proc Eval Procedure: Operation Date: 10/18/24 07:30 Proposed Procedures p Robotic Assisted Laparoscopic Total Vaginal Hysterectomy with Possible Oophorectomy - Ady King MD Date/Time: 10/18/24 06:59 Surgeon: Ady King MD Pre Op Diagnosis: Pelvic Pain, Menorrhagia Patient Data Age: 44 Gender: F Height: 1.68 m Weight: 66.9 kg Last Vital Signs Temp 36.2 C L 10/18/24 06:02 Pulse 77 10/18/24 06:02 Resp 16 10/18/24 06:02 BP 131/80 10/18/24 06:02 Pulse Ox 98 10/18/24 06:02 O2 Del Method Room Air 10/18/24 06:02 Allergies Allergy/AdvReac Type Severity Reaction Status Date / Time Penicillins Allergy Unknown Hives Verified 10/10/24 14:35 Home Medications ?Medication ?Instructions ?Recorded ?Confirmed ?Type simvastatin 10 mg tablet 10 mg PO DAILY 05/18/23 10/18/24 History rimegepant 75 mg disintegrating 75 mg PO ONCE PRN migraine headache 06/18/24 10/08/24 History tablet (Nurtec ODT) multivitamin (Daily Multi-Vitamin 1 tablet PO DAILY 10/08/24 10/18/24 History tablet) magnesium 200 mg tablet 200 mg PO DAILY 10/10/24 10/18/24 History riboflavin (vitamin B2) 25 mg 25 mg PO DAILY 10/10/24 10/18/24 History tablet Patient hx anesthesia problems: none Family hx anesthesia problems: none Results Review: All pre-operative results and documents have been reviewed as part of the pre-operative evaluation. [facility] Past Medical History Medical History History of vaginal delivery History of miscarriage Surgical History Surgical History History of endometrial ablation H/O tubal ligation 2018 History of appendectomy 1990 Family History Family History Grandparent Acute myocardial infarction Other Breast cancer Father Heart disease Social History Social History Smoking packs per day: 1 Smoking cigarettes per day: 20.0 Years smoked: 17 Smoking pack-years: 17.00 Smoking status: Current every day smoker Tobacco type: e-cigarettes/vaping Second hand tobacco smoke exposure: No Smoking end date: 07/03/10 Additional smoking assessment comments: CURRENTLY VAPES Alcohol intake: current Alcohol use details: 3/MONTH Substance use: never Substance use type: does not use Lack of Transportation: No Lack of Food: Never True Current Housing: I Have Housing Concerned About Future Housing: No Difficulty Paying Gas/Electric Bills: No Difficulty Paying for Meds: No Currently Unemployed: No Education: Master's Degree or Higher Difficulty w/ Childcare or Family Care: No Living arrangements: with family Spiritual care concerns: No Anes - Eval Final PreProcedure Day of Procedure 10/18/24 06:59 Patient weight: normal Heart: regular rate and rhythm Lungs: decreased breath sounds Airway: Mallampati scale class II Neurological: alert and oriented Last oral intake: >/= 8 hours ASA classification: II Emergent: no Anesthetic plan: proceed Anesthesia type and monitoring: general ETT and standard monitoring Results Review: All pre-operative results and documents have been reviewed as part of the pre-operative evaluation. Informed Consent: The patient's anesthetic plan and its attendant risks and benefits were discussed with the patient/family/POA. Questions were solicited and answers provided to the satisfaction of the patient/family/POA.
[2024-10-18 07:04] LABS: BEDSIDEPREGUCG Negative (Negative)
[2024-10-18] MEDS: SCOPOLAMINE 1 MG PATCH 1 PATCH TRANSDERM (07:04)
[2024-10-18] MEDS: ceFAZolin 2 GM/D5W 50 ML 2 GM/50 ML BAG IVPB (07:21)
[2024-10-18] MEDS: BUPivacaine HCL 0.5% PF 30 ML VIAL INFILTRATE (08:14)
--- NOTE | 2024-10-18 09:46 | P.OPB_ITS ---
Procedure Note - Brief Procedure Note - Brief Date of procedure: 10/18/24 Pelvic Pain, Menorrhagia Post-op diagnosis: Other (1. Extensive pelvic adhesions 2. Left ovarian cyst 3. Right ovarian cyst. Uterus mildly enlarged with appearance of subserosal/intramural fibroid) Procedure performed: 1. Laparoscopic robotic assisted total vaginal hysterectomy. 2. Excision of left ovarian cyst 3. Right ovarian cystectomy 4. Lysis of adhesions 5. Cystoscopy. Surgeon: Ady King MD Health Education Teacher: Martin Anesthesia: GETA Findings: Fibroid uterus, right ovarian cyst, simple, left ovary composed of large cyst densely attached to colon, normal bladder cystoscopy with bilateral jetting from UO. Estimated blood loss (mL): 100 Urine output (mL): 100 Drains: No Packing: No Pathology: Yes (uterus cervix, portion of left ovary, right ovarian cyst wall) Complications: No immediate complications Condition: Stable Disposition: PACU
--- NOTE | 2024-10-18 09:56 | SUR.OPER ---
100 cc removed from campbell bag
--- NOTE | 2024-10-18 10:10 | P.OP_ITS ---
Procedure Note - Detailed Date of Procedure 10/18/24 Pre-op Diagnosis Pelvic Pain, Menorrhagia, history of endometriosis, ovarian cyst Post-op Diagnosis Other ( 1. Fibroid uterus 2. Abnormal uterine bleeding 3. Left ovarian cyst persistent 4. Right ovarian cyst 5. Extensive pelvic adhesions) Procedure Performed 1. Laparoscopic robotic assisted total vaginal hysterectomy 2. Right ovarian cystectomy 3. Left ovarian cystectomy with removal of most of ovary 4. Lysis of adhesions 5. Cystoscopy Surgeon Ady King MD Director Of Sales Marketing joshua Anesthesia General Indications patient with persistent abnormal bleeding resistant to prior modalities ablation and hormonal. She also has a persistent left ovarian cyst that appears to be hemorrhagic on ultrasound. She has a history of endometriosis. She opts for definitive treatment for her symptoms. With hysterectomy. Findings 1. Uterus mildly enlarged with fibroid that appears subserosal or partially intramural. 2. Simple right ovarian cyst clear fluid with incision of it 3. Large left ovarian cyst left ovary adhesed to sidewall and ese intestinal fat and also densely adhesed to distal colon inferiorly. 4. Adhesions of te ese intestinal fat to posterior and uterus and right ovary. 5. Normal cystoscopy bilateral jetting from UO Description of Procedure After informed consent was obtained she was taken to the operating room and general endotracheal anesthesia was administered. She was placed in low lithotomy position. An exam under anesthesia was performed. Uterus mildly enlarged. She was and prepped and draped in sterile fashion. Price catheter placed in bladder. Attention was turned to the vagina speculum was inserted. Single-tooth tenaculum placed on anterior lip of the cervix the uterus sounded to 7 cm. The cervix was dilated to a 8 Huitron dilator. A size 6 uterine manipulator was inserted and secured. A size 3.0 colp cup was secured in the vagina. Then attention was turned to the abdomen and .25% marcaine injected subcutaneously. An incision was made horizontal 2 cm above the umbilicus. Veress needle was inserted confirmation into the abdomen obtained with normal peritoneal pressures. 8 mm robotic port was inserted under laparoscopic visualization. A Pneumoperitoneum of 15 mm per mercury was obtained. No abdominal or pelvic adhesions noted. She was placed in Trendelenburg position. A small incision was made approximately 6 cm lateral to the port on the left side of the port. A size 8mm robotic port was inserted under laparoscopic visualization into the abdomen on the left side. Attention was turned to the right side and incision was made parallel an 8 mm robotic port was inserted and superior medial to this an incision was made and the 10 mm credit control assistant port was inserted. Marcaine was used prior to incision at each site. She was placed in steep Trendelenburg position and robotic arms were attached. Attention was turned to the surgery console. Adhesions that were surrounding the uterus and right adnexa were lysed. The right round ligament was ligated. Anterior leaf of the broad ligament on the right side was dissected anteriorly. The right side of the bladder was dissected from the lower uterine segment and upper cervix. The right ovarian ligament was ligated. The ascending uterine vessels on the right were cauterized. The uterine artery on the right were ligated. Attention was turned to the left round ligament which was ligated and the anterior leaf of the broad ligament was dissected anteriorly. The rest of the vesicouterine peritoneum was dissected off of the uterus. Once the bladder was dissected below the colp cup then the posterior leaf of the broad ligament was further dissected. The ovarian ligament was ligated. The ascending uterine vessels were ligated. The uterine arteries were ligated. The cardinal ligaments were ligated. This was done on both sides. An incision was made anterior colpotomy incision was made and this was carried around until the cervix was removed from the vagina. The uterus and cervix were removed through the vagina. The vaginal cuff was closed in a running fashion with 0 V lock sut ure. Hemostasis was noted. attention was turned to the left ovary the left ovary was further dissected from the ese intestinal fat. The inferior portion of the ovary was densely adhesed to the sigmoid colon. the cyst was entered and there was large amount of dark old blood appearing material or endometriosis type material. Most of the left ovary was removed the portion that was densely adhesed to the distal colon remained due to concern that further dissection would result in an enterotomy. attention was turned to the right ovary which had an approximately 4 cm cyst. Simple appearing. An incision was made in the cyst clear fluid was suction from it the cyst wall was collapsed the cyst wall was grabbed and excised. Hemostasis obtained that area with cautery. The pelvis was irrigated. Hemostasis noted. Hemoderm was applied in the pelvis. The patient was taken out of Trendelenburg position. The pneumoperitoneum was released and the ports were removed. a cystoscopy was performed and there was noted to be normal bladder and also bilateral jetting from the ureteral or a 5. The skin incisions were closed with 4 O Vicryl and skin glue. The patient was extubated in operating room. The sponge count was correct x2. Patient tolerated procedure well and was taken to recovery in stable condition. Estimated Blood Loss 100 Urine Output 100 Drains No Packing No Pathology Yes ( Uterus and cervix, right cyst wall, left ovarian cyst,) Complications No immediate complications Condition Stable Disposition PACU [facility] Billing Surgery - Charge Forward: Surgery Billing
--- NOTE | 2024-10-18 11:27 | ADMGEN ---
1113-This patient, Lisa Zayas, was admitted to OB 2nd Floor Room 289-00. Patient/family oriented to hospital policies and general routines including ID bracelet, bed and alarms, visiting hours, pain management, procedures, bathroom and other care routines, personal items, smoking policy, room service/diet, and visiting hours. Information on how to activate the Rapid Response Team has been discussed. Patient/Family are encouraged to report perceived risks to care and to ask questions if they do not understand what they are told or what they should do.
[2024-10-18] MEDS: SIMETHICONE 80 MG TAB.CHEW PO ×2 (11:54→16:56)
[2024-10-18] MEDS: KETOROLAC 30 MG/ML VIAL (*BKC) IV PUSH ×2 (11:54→19:30)
[2024-10-18] MEDS: DEXTROSE 5%/0.45% SOD CHL 1,000 ML 125 ML IV CONT ×2 (11:55→19:30)
[2024-10-18] MEDS: DOCUSATE SODIUM 100 MG CAPSULE PO (16:56)
[2024-10-18] MEDS: ceFAZolin 1 GM/NS 50 ML 1 GM/50 ML BAG IVPB (16:56)
[2024-10-18] MEDS: ONDANSETRON INJ 4 MG/2 ML VIAL IV PUSH (17:28)
[2024-10-19 00:43] VITALS: BP 109/66; PULSE 55; RESP 18; TEMP 36.4; O2SAT 98
[2024-10-19] MEDS: ACETAMINOPHEN 500 MG TABLET 1000 MG PO ×2 (01:00→08:11)
[2024-10-19] MEDS: KETOROLAC 30 MG/ML VIAL (*BKC) IV PUSH (01:00)
[2024-10-19] MEDS: ceFAZolin 1 GM/NS 50 ML 1 GM/50 ML BAG IVPB ×2 (01:00→08:53)
[2024-10-19 04:20] VITALS: BP 115/64; PULSE 53; RESP 18; TEMP 36.6; O2SAT 99
[2024-10-19 08:07] VITALS: BP 104/69; PULSE 55; RESP 16; TEMP 36.7; O2SAT 100
[2024-10-19] MEDS: IBUPROFEN 600 MG TABLET PO (08:10)
[2024-10-19] MEDS: SIMETHICONE 80 MG TAB.CHEW PO (08:11)
[2024-10-19] MEDS: DOCUSATE SODIUM 100 MG CAPSULE PO (08:17)
--- NOTE | 2024-10-19 09:55 | PM.GYNPNOP ---
OYSTER HARVESTER - A/P Assessment and plan (1) H/O: hysterectomy: Code(s): Z90.710 - Acquired absence of both cervix and uterus Status: Acute Assessment and Plan: POD1. Discussed her surgery procedure and findings. Doing well. Discharge today. Postoperative Procedures: Procedures Operation Date: 10/18/24 07:30 Actual Procedure Side Surgeon p Robotic Assisted Total Vaginal Hysterectomy with Removal of Left Ovary and Right Ovarian Sac Wall, Cystoscopy, Lysis of Adhesions Left Ady King MD Time Spent With Patient Time: Total time spent is greater than 50% in coordination of care (as documented) at patient's floor/unit and/or counseling patient: Time with patient: less than 15 minutes OYSTER HARVESTER- PN:Subj Post-Op Subjective Date/time seen: 10/19/24 09:55 Interval history: She states adequate pain control, has ambulated in room without problems, tolerating regular food, positive flatus. No leg pain. Review of Systems Review of Systems: All systems reviewed & are unremarkable except as noted in HPI and below Cardiovascular: Cardiovascular: Reports no additional cardiovascular complaints Respiratory: Respiratory: Reports no additional respiratory complaints Gastrointestinal: Gastrointestinal: Denies nausea and Denies vomiting Genitourinary: Genitourinary: Reports no additional female genitourinary complaints Musculoskeletal: Musculoskeletal: Reports no additional musculoskeletal complaints Exam Const: General: comfortable and no acute distress Orientation/consciousness: oriented to person, oriented to place and oriented to time Resp: Effort & Inspection: normal respiratory effort GI: GI Palp: Yes Soft to palpation and No Tenderness to palpation present (GI) Other: incision intact, nondistended, mild tender at incision Neuro: General: oriented to person, oriented to place and oriented to time Extrem: General: no calf tenderness Psych: Mental Status: mental status grossly normal OYSTER HARVESTER - PN: Obj Data Vital Signs Vital Signs: Vital Signs - 24 hr 10/18/24 10:00 10/18/24 10:15 10/18/24 10:21 Temperature 97.4 F L Pulse Rate 68 70 Respiratory Rate 14 15 Blood Pressure 141/80 H 152/85 H Pulse Oximetry 100 99 100 Oxygen Delivery Simple Face Mask Simple Face Mask Room Air Oxygen Flow Rate 6 6 10/18/24 10:30 10/18/24 10:45 10/18/24 11:00 Temperature Pulse Rate 69 62 60 Respiratory Rate 15 14 15 Blood Pressure 137/83 139/81 139/76 Pulse Oximetry 95 96 96 Oxygen Delivery Room Air Room Air Room Air Oxygen Flow Rate 10/18/24 11:25 10/18/24 11:55 10/18/24 16:16 Temperature 98 F Pulse Rate 59 L 59 L 59 L Respiratory Rate 16 16 16 Blood Pressure 138/73 Pulse Oximetry 95 95 95 Oxygen Delivery Room Air Room Air Oxygen Flow Rate 10/18/24 16:16 10/18/24 19:30 10/18/24 19:30 Temperature 97.7 F 97.8 F Pulse Rate 56 L 53 L Respiratory Rate 16 18 Blood Pressure 122/69 125/71 Pulse Oximetry 100 100 Oxygen Delivery Room Air Oxygen Flow Rate 10/19/24 00:43 10/19/24 00:43 10/19/24 04:20 Temperature 97.6 F 98 F Pulse Rate 55 L 53 L Respiratory Rate 18 18 Blood Pressure 109/66 115/64 Pulse Oximetry 98 99 Oxygen Delivery Room Air Oxygen Flow Rate 10/19/24 04:20 10/19/24 08:07 10/19/24 08:07 Temperature 98.1 F Pulse Rate 55 L 55 L Respiratory Rate 16 16 Blood Pressure 104/69 Pulse Oximetry 100 100 Oxygen Delivery Room Air Room Air Oxygen Flow Rate Intake/Output Intake/Output: Intake & Output 10/16/24 10/17/24 10/18/24 10/19/24 23:59 23:59 23:59 23:59 Intake Total 1940.5 2200 Output Total 950 2200 Balance 990.5 0 Meds/Results Medications: Active Medications Generic Name Dose Route Start Last Admin Trade Name Freq PRN Reason Stop Dose Admin Acetaminophen 1,000 mg 10/18/24 12:00 10/19/24 08:11 Acetaminophen 500 Mg Tablet PO 1,000 mg Q6HR RONNY Administration Hydrocodone Bitart/Acetaminophen 1 tab 10/18/24 10:05 Hydrocodone/Acetaminophen (*Crx) 5-325 Mg Tablet PO Q3H PRN Pain Rated 4-6 Hydrocodone Bitart/Acetaminophen 1 tab 10/18/24 10:05 Hydrocodone/Acetaminophen (*Crx) 10-325 Mg Tablet PO Q3H PRN Pain Rated 7-10 Docusate Sodium 100 mg 10/18/24 17:00 10/19/24 08:17 Docusate Sodium 100 Mg Capsule PO 100 mg BID RONNY Administration Hydromorphone HCl 0.5 mg 10/18/24 10:05 Hydromorphone Hcl Inj (*Crx) 1 Mg/Ml Syr IV PUSH Q2H PRN Breakthrough Pain Rated 4-6 or NPO Dextrose/Sodium Chloride 1,000 mls @ 125 mls/hr 10/18/24 10:05 10/19/24 04:20 Dextrose 5% Sodium Chloride 0.45% IV CONT Infused .Q8H RONNY Infusion Ibuprofen 600 mg 10/19/24 06:00 10/19/24 08:10 Ibuprofen 600 Mg Tablet PO 600 mg Q6HR RONNY Administration Miscellaneous Information 1 each 10/18/24 00:01 Nonformulary Drug (Rimegepant [Nurtec Odt] 75 Mg Tablet,Disintegrating)Can Paitent Use Fro XX 11/17/24 00:00 CLARIFY RONNY Naloxone HCl 0.1 mg 10/18/24 10:05 Naloxone Hcl 0.4 Mg/Ml Vial IV PUSH Q2M PRN Respiratory rate less than 10 Non-Formulary Medication 75 mg 10/18/24 10:35 Rimegepant [Nurtec Odt] PO ONCE PRN migraine headache Ondansetron HCl 4 mg 10/18/24 10:05 10/18/24 17:28 Ondansetron Inj 4 Mg/2 Ml Vial IV PUSH 4 mg Q6H PRN Administration Nausea And Vomiting Simethicone 80 mg 10/18/24 12:00 10/19/24 08:11 Simethicone 80 Mg Tab.Chew PO 80 mg TIDWM RONNY Administration Simvastatin 10 mg 10/19/24 09:00 10/19/24 08:14 Simvastatin 10 Mg Tablet PO Not Given DAILY RONNY
== END 2024-10-19 10:35 | disposition home or self-care (01) ==
LOC: ANHSURGERY 07:05 → ANHOB2 11:15
PROVIDERS: PCP Family Medicine; Visit Provider Obstetrics & Gynecology
PROC: 0UT9FZZ Resection of Uterus, Via Natural or Artificial Opening With Percutaneous Endoscopic Assistance (ICD-10-PCS; CPT 58662; principal; 2024-10-18 07:30)
DX: N92.0 Excessive and frequent menstruation with regular cycle (principal); N73.6 Female pelvic peritoneal adhesions (postinfective); N72 Inflammatory disease of cervix uteri; N88.8 Other specified noninflammatory disorders of cervix uteri; N80.03 Adenomyosis of the uterus; N83.202 Unspecified ovarian cyst, left side; N83.201 Unspecified ovarian cyst, right side; N80.102 Endometriosis of left ovary, unspecified depth; F17.290 Nicotine dependence, other tobacco product, uncomplicated
CPT/HCPCS: 58662; 58552; S2900; 88305; 88307; A9270; J0690; J1100; J1885; J2250; J2270; J2405; J2704; J7030; J7120